=== PATIENT | male | born 1955 | race Caucasian/White ===

== ENCOUNTER 2018-07-06 10:47 | Emergency (ER) | payer OTHER ==
[~2018-07-06] VITALS: Ht 167.6 cm; Wt 69.3 kg
[2018-07-06 10:53] VITALS: Ht 167.6 cm; Wt 69.3 kg
[2018-07-06] MEDS ORDERED: SOD CHLORIDE 0.9% 500 ML IV STA (11:12)
[2018-07-06] MEDS ORDERED: morphine 2 MG INJ IV STA (11:12)
[2018-07-06] MEDS ORDERED: UNKOWN HTN RX (11:24)
[2018-07-06] MEDS ORDERED: ONDANSETRON 4 MG INJ IV ONE (11:30)
[2018-07-06] MEDS ORDERED: IOHEXOL 300MG/ML 150 ML BTL ONE (11:59)
[2018-07-06] MEDS ORDERED: SOD CHLORIDE 0.9% 100 ML ONE (11:59)
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
[2018-07-06] MEDS ORDERED: HYDR-3980 PO (12:37)
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
[2018-07-06 13:07] VITALS: BP 146/85; PULSE 95; RESP 20
== END 2018-07-06 13:35 | disposition home or self-care (01) ==
LOC: E/R 10:47
DX: S20.212A Contusion of left front wall of thorax, initial encounter (principal); S62.617A Displaced fracture of proximal phalanx of left little finger, initial encounter for closed fracture; I10 Essential (primary) hypertension; Y04.8XXA Assault by other bodily force, initial encounter; Z87.891 Personal history of nicotine dependence
CPT/HCPCS: 29125; 71046; 73130; 74177; 80048; 85025; 85610; 85730; 93005; 96374; 96375; 99285; J2270; J2405; J7040; Q9967